=== PATIENT | male | born 1970 | race Caucasian/White ===

== ENCOUNTER 2018-05-30 17:29 | Emergency (ER) | payer OTHER ==
[~2018-05-30] VITALS: Ht 170.2 cm; Wt 83.9 kg
[~2018-05-30 17:29] MED LIST: HYDR-79 PO
--- NOTE | 2018-05-30 17:39 | ED.ADGEN ---
Past History Past Medical History: No Pertinent History, Asthma, Bronchitis Past Surgical History: Appendectomy, Cholecystectomy Alcohol Use: Occasionally Drug Use: None Adult General Chief Complaint Chief Complaint '",, I got sent home from work because of all my coughing Thursday.. I have asthma.. It seems to be triggered by seasons... " HPI HPI Patient is a 48 year old male who presents with above hx and complaints of fasciitis, rhinorrhea, increased wheezing and productive cough with clear sputum. Patient states he usually gets an exacerbation of his asthma during the fall year. Patient does have a home inhaler that was 3 years old. Patient does not all his best peak flow. Patient has not traveled recently been exposed to ill individuals. Patient is generally healthy. Follows at [facility] for care. Is up-to-date with immunizations. Review of Systems Review of Systems Constitutional: Denies fever or chills [] Eyes: Denies change in visual acuity, redness, or eye pain [] HENT: History of rhinorrhea and nasal congestion. And sore throat [] Respiratory: History of cough or shortness of breath [] Cardiovascular: No additional information not addressed in HPI [] GI: Denies abdominal pain, nausea, vomiting, bloody stools or diarrhea [] : Denies dysuria or hematuria [] Musculoskeletal: Denies back pain or joint pain [] Integument: Denies rash or skin lesions [] Neurologic: Denies headache, focal weakness or sensory changes [] Endocrine: Denies polyuria or polydipsia [] All other systems were reviewed and found to be within normal limits, except as documented in this note. Family History Family History Noncontributory Current Medications Current Medications Current Medications Medications (Trade) Dose Ordered Sig/Genaro Start Time Stop Time Status Last Admin Dose Admin Albuterol Sulfate (Ventolin Hfa Inhaler) 60 puff STK-MED ONCE 05/30/18 17:52 05/30/18 17:53 DC Albuterol/ Ipratropium (Duoneb) 3 ml STK-MED ONCE 05/30/18 17:51 05/30/18 17:52 DC Diphenhydramine HCl (Benadryl) 50 mg 1X ONCE 05/30/18 18:00 05/30/18 18:01 DC 05/30/18 18:13 50 MG Prednisone (Prednisone) 60 mg 1X ONCE 05/30/18 18:00 05/30/18 18:01 DC 05/30/18 18:13 60 MG Allergies Allergies Allergies Coded Allergies Type Severity Reaction Last Updated Verified fentanyl Allergy Intermediate 11/07/16 Yes meloxicam Allergy Intermediate 11/07/16 Yes Physical Exam Physical Exam Constitutional: Well developed, well nourished, no acute distress, non-toxic appearance. [] HENT: Normocephalic, atraumatic, bilateral external ears normal, oropharynx moist, injected pharynx no oral exudates, nose ear rhinorrhea. Eyes: PERRLA, EOMI, conjunctiva normal, no discharge. [] Neck: Normal range of motion, no tenderness, supple, no stridor. [] Cardiovascular:Heart rate regular rhythm, no murmur [] Lungs & Thorax: Bilateral breath sounds equal at apex with scattered wheezes on auscultation [] Abdomen: Bowel sounds normal, soft, no tenderness, no masses, no pulsatile masses. [] Skin: Warm, dry, no erythema, no rash. [] Back: No tenderness, no CVA tenderness. [] Extremities: No tenderness, no cyanosis, no clubbing, ROM intact, no edema. [] Neurologic: Alert and oriented X 3, normal motor function, normal sensory function, no focal deficits noted. [] Psychologic: Affect normal, judgement normal, mood normal. [] Current Patient Data Vital Signs Vital Signs Date Time Temp Pulse Resp B/P (MAP) Pulse Ox O2 Delivery O2 Flow Rate FiO2 05/30/18 18:43 98.2 82 16 97 Room Air Lab Results Laboratory Tests Test 05/30/18 18:00 Group A Streptococcus Rapid Negative (NEGATIVE) EKG EKG [] Radiology/Procedures Radiology/Procedures [] Course & Med Decision Making Course & Med Decision Making Pertinent Labs and Imaging studies reviewed. (See chart for details). Use MDI 2 puffs 4 times a day with spacer. Patient to document peak flow. Patient to show his peak flow record. Primary care physician. Patient take prednisone 50 mg a day for 5 days. Patient may use Benadryl 25-50 mg 4 times a day for allergies and congestion and drainage. Return if any concerns. Follow-up primary care rest.[] Final Impression Final Impression 1. Asthma exacerbation 2. Negative strep test 3. Viral syndrome[] Dragon Disclaimer Dragon Disclaimer This electronic medical record was generated, in whole or in part, using a voice recognition dictation system. JERED KAPOOR MD May 30, 2018 17:39
[2018-05-30] MEDS ORDERED: IPRATRPIUM/ALBUTEROL 0.5/2.5MG 3 ML NEBU. ONE (17:51)
[2018-05-30] MEDS ORDERED: ALBUTEROL SULFATE 8GM INHALER. ONE (17:52)
[2018-05-30] MEDS ORDERED: DIPH25CA58 PO (17:54)
[2018-05-30] MEDS ORDERED: PRED50TA PO (17:54)
[2018-05-30] MEDS ORDERED: ALBU18HF IH (17:54)
[2018-05-30] MEDS ORDERED: ALBUTEROL SULFATE 8GM INHALER. INH ONE (18:00)
[2018-05-30] MEDS ORDERED: diphenhydrAMINE HCL 25 MG CAPSULE PO ONE (18:00)
[2018-05-30] MEDS ORDERED: predniSONE 20 MG TABLET PO ONE (18:00)
[2018-05-30] MEDS ORDERED: IPRATRPIUM/ALBUTEROL 0.5/2.5MG 3 ML NEBU. NEB ONE (18:00)
[2018-05-30 18:43] VITALS: BP 124/64
== END 2018-05-30 18:30 | disposition home or self-care (01) ==
LOC: ER 17:29
DX: J45.901 Unspecified asthma with (acute) exacerbation (principal); B34.9 Viral infection, unspecified; M72.9 Fibroblastic disorder, unspecified; Z88.8 Allergy status to other drugs, medicaments and biological substances
CPT/HCPCS: 87070; 87880; 94640; 99284; J7512; J7620; Q0163

== ENCOUNTER 2021-03-16 19:39 | Emergency (ER) | payer OTHER ==
[~2021-03-16] VITALS: Ht 170.2 cm; Wt 86.3 kg
[~2021-03-16 19:39] MED LIST changes: +ALBU2.5V8 IH; +DIPH25CA58 PO; +HYDR-1179 PO; -HYDR-79 PO; +PRED50TA PO
[2021-03-16 19:52] VITALS: BP 137/90
[2021-03-16] MEDS ORDERED: TETANUS AND DIPHTHERIA TOX/PF 0.5 ML VIAL. VAX IM ONE (20:00)
[2021-03-16] MEDS ORDERED: DIPH,PERTUSS(ACELL),TET VAC/PF 0.5 ML SYRINGE. VAX IM ONE (20:00)
--- NOTE | 2021-03-16 20:01 | PHYS DOC ---
Past History Past Medical History: Asthma Past Surgical History: No Surgical History Alcohol Use: None Drug Use: None General Adult EDM: Chief Complaint: LOWEREXTREMITY INJURY HPI: HPI: Patient is a 51-year-old male being seen in the ER today after scratching the right back of his leg on [place] barbed wire 1 hour prior to arrival. Patient is requesting a tetanus shot. Patient denies pain, weakness, swelling, decreased sensation to extremity. Review of Systems: Review of Systems: 14 body systems of the review of systems have been reviewed. See HPI for pertinent positive and negative responses, otherwise all other systems are negative, nonpertinent or noncontributory Allergies: Allergies: Allergies Coded Allergies Type Severity Reaction Last Updated Verified fentanyl Allergy Intermediate 11/07/16 Yes meloxicam Allergy Intermediate 11/07/16 Yes Physical Exam: PE: Constitutional: Well developed, well nourished, no acute distress, non-toxic appearance. [] HENT: Normocephalic, atraumatic Eyes: PERRL,conjunctiva normal, no discharge. [] Neck: Normal range of motion,no stridor. [] Cardiovascular: Normal peripheral perfusion Lungs & Thorax: Normal work of breathing, no tachypnea, Skin: Warm, dry, no erythema, no rash. Patient has 2 superficial abrasions noted to the posterior aspect of his right calf. Wounds do not require suturing and there are no signs of infection (no redness, warmth, swelling, drainage). [] Back: Normal range of motion Extremities: No tenderness, no cyanosis, no clubbing, ROM intact, no edema. [] Neurologic: Alert and oriented X 3, normal motor function, normal sensory function, no focal deficits noted. [] Psychologic: Affect normal, judgement normal, mood normal. [] EKG: EKG: [] Radiology/Procedures: Radiology/Procedures: [] Heart Score: C/O Chest Pain: No Risk Factors: Risk Factors: DM, Current or recent (<one month) smoker, HTN, HLP, family history of CAD, obesity. Risk Scores: Score 0 - 3: 2.5% MACE over next 6 weeks - Discharge Home Score 4 - 6: 20.3% MACE over next 6 weeks - Admit for Clinical Observation Score 7 - 10: 72.7% MACE over next 6 weeks - Early Invasive Strategies Course & Med Decision Making: Course & Med Decision Making Pertinent Labs and Imaging studies reviewed. (See chart for details) Patient is a 51-year-old male being seen for tetanus shot after scratching the right back of his calf on [place] barbed wire fencing. Patient was given a tetanus shot in the ER. The wounds to the back of his calf are abrasions and do not require suturing. Patient given education regarding wound care and when to return to the ER. I discussed with patient all findings as well as the need to follow-up with PCP for further evaluation and treatment or return to the ER if any new or worsening symptoms. Strict return precautions were also discussed at length. Patient voiced understanding and agreement with the plan. Patient is hemodynamically stable at the time of disposition. Dragon Disclaimer: Maureen Disclaimer: This electronic medical record was generated, in whole or in part, using a voice recognition dictation system. Departure Departure: Impression: Primary Impression: Abrasion Additional Impression: Need for tetanus, diphtheria, and acellular pertussis (Tdap) vaccine Disposition: 01 HOME / SELF CARE / HOMELESS Condition: GOOD Referrals: MARLENA SNOW MD (PCP) Patient Instructions: Abrasions Additional Instructions: You were seen in the ER following an injury. Your abrasions to your right lower leg do not require suturing. Please keep these clean and dry. Monitor for signs of infection including redness, warmth, swelling, drainage. If you develop any of the symptoms and worsening of pain, difficulty ambulating, fevers please return to the ER. EMERGENCY DEPARTMENT GENERAL DISCHARGE INSTRUCTIONS Thank you for coming to [facility] (ED) today and trusting us with you care. We trust that you had a positivie experience in our Emergency Department. If you wish to speak to the department management, you may call the director at [phone]. YOUR FOLLOW UP INSTRUCTIONS ARE FOLLOWS: 1. Do you have a private Doctor? If you do not have a private doctor, please ask for a resource list of physicians or clinics that may be able to assist you with follow up care. 2. The Emergency Physician has interpreted your x-rays. The X-Ray specialist will also review them. If there is a change in the findings, you will be notified in 48 hours when at all possible. 3. A lab test or culture has been done, your results will be reviewed and you will be notified if you need a change in treatment. ADDITIONAL INSTRUCTIONS AND INFORMATION: 1. Your care today has been supervised by a physician who is specially trained in emergency care. Many problems require more than one evaluation for a complete diagnosis and treatment. We recommend that you schedule your follow up appointment as recommended to ensure complete treatment of you illness or injury. If you are unable to obtain follow up care and continue to have a problem, or if your condition worsens, we recommend that you return to the ED. 2. We are not able to safely determine your condition over the phone nor are we able to give sound medical advice over the phone. For these safety reasons, if you call for medical advice we will ask you to come to the ED for further evaluation. 3. If you have any questions regarding these discharge instructions please call the ED at [phone]. SAFETY INFORMATION: In the interest of safety, wellness, and injury prevention; we encourage you to wear your sealbelt, if you smoke; quite smoking, and we encourage family to use a prote ctive helmet for bicycling and other sporting events that present an increased risk for head injury. IF YOUR SYMPTOMS WORSEN OR NEW SYMPTOMS DEVELOP, OR YOU HAVE CONCERNS ABOUT YOUR CONDITION; OR IF YOUR CONDITION WORSENS WHILE YOU ARE WAITING FOR YOUR FOLLOW UP APPOINTMENT; EITHER CONTACT YOUR PRIMARY CARE DOCTOR, THE PHYSICIAN WHOSE NAME AND NUMBER YOU WERE GIVEN, OR RETURN TO THE ED IMMEDIATELY. AMY GÓMEZ APRN Mar 16, 2021 20:01
== END 2021-03-16 20:08 | disposition home or self-care (01) ==
LOC: ER 19:39
DX: S80.811A Abrasion, right lower leg, initial encounter (principal); J45.909 Unspecified asthma, uncomplicated; Z23 Encounter for immunization; Z88.8 Allergy status to other drugs, medicaments and biological substances; W50.4XXA Accidental scratch by another person, initial encounter; Y93.89 Activity, other specified; Y92.89 Other specified places as the place of occurrence of the external cause; Y99.8 Other external cause status
CPT/HCPCS: 90471; 90715; 99283-25